=== PATIENT | female | born 1985 | race Caucasian/White ===

== ENCOUNTER 2020-12-18 07:47 | Outpatient (CLI) | payer BC, SELFPAY ==
--- NOTE | 2020-12-18 07:53 | US_ITS ---
WS: [id number] THYROID ULTRASOUND (TI-RADS CRITERIA) History: Hypothyroidism. Technique: Ultrasound examination of the thyroid and adjacent soft tissues is performed. FINDINGS: Right lobe: 4.5 cm x 1.0 cm x 1.0 cm. Volume: 2.3 cm3. Small caliber echogenic lobulated thyroid. No nodule or increased vascularity. No adjacent adenopathy . Left lobe: 3.4 cm x 0.9 cm x 1.1 cm. Volume: 1.6 cm3. Small caliber echogenic, lobulated thyroid. No dominant nodule or mass. No adenopathy. Isthmus: 0.2 cm. US/US thyroid [id number] Impression: 1. Echogenic small thyroid. 2. No thyroid nodules. I
== END 2020-12-18 07:48 | disposition home or self-care (01) ==
PROVIDERS: PCP Family Medicine; Visit Provider Family Medicine
DX: E03.9 Hypothyroidism, unspecified (principal)
CPT/HCPCS: 76536